=== PATIENT | male | born 1970 | race Caucasian/White ===

== ENCOUNTER → 2020-07-18 | Outpatient (CLI) | payer OTHER | END | disposition home or self-care (01) | LOC: CVU 07:14 | PROVIDERS: ATTEND Internal Medicine Cardiovascular Disease | DX: I25.89 Other forms of chronic ischemic heart disease (principal); E11.9 Type 2 diabetes mellitus without complications; I10 Essential (primary) hypertension; R94.31 Abnormal electrocardiogram [ECG] [EKG] | CPT/HCPCS: 78452; 93017; 93306; 93356; A9502 ==

== ENCOUNTER 2020-08-02 06:40 | Day surgery (SDC) | payer OTHER ==
[~2020-08-02] VITALS: Ht 185.4 cm; Wt 125.0 kg
[2020-08-02] MEDS ORDERED: SODIUM CHLORIDE 0.9% 1,000 ML IV SCH (07:00)
[2020-08-02] MEDS ORDERED: ASPI81TA45 PO (07:18)
[2020-08-02] MEDS ORDERED: SILD25TA PO (07:18)
[2020-08-02] MEDS ORDERED: METF500T17 PO (07:18)
[2020-08-02] MEDS ORDERED: CETI-158 PO (07:18)
[2020-08-02] MEDS ORDERED: ESCI10TA97 PO (07:18)
[2020-08-02] MEDS ORDERED: ROSU10TA2 PO (07:18)
[2020-08-02] MEDS ORDERED: ACEB200C13 PO (07:18)
[2020-08-02] MEDS ORDERED: MULT1TAB57 PO (07:18)
[2020-08-02] MEDS ORDERED: TAMS-11 PO (07:18)
[2020-08-02] MEDS ORDERED: BUPR150T7 PO (07:18)
[2020-08-02] MEDS ORDERED: CHOL10003 PO (07:18)
[2020-08-02] MEDS ORDERED: MAGN400T36 PO (07:18)
[2020-08-02] MEDS ORDERED: DULA1.5P INJ (07:18)
[2020-08-02] MEDS ORDERED: LEVO5TAB29 PO (07:18)
[2020-08-02] MEDS ORDERED: EMPA25TA PO (07:18)
[2020-08-02] MEDS ORDERED: CLOM50TA17 PO (07:18)
[2020-08-02 07:21] VITALS: BP 124/78
[2020-08-02 07:25] LABS: BASOPHILS % (AUTO) 1 % (0-1); EOSINOPHILS % (AUTO) 1 % (1-7); LYMPHOCYTES % (AUTO) 30 % (22-44); MEAN CORPUSCULAR HEMOGLOBIN 26.2 pg (27.5-34.5); MEAN CORPUSCULAR HGB CONC 32.4 g/dL (33.2-36.2); MONOCYTES % (AUTO) 7 % (2-9); NEUTROPHILS % (AUTO) 62 % (42-75); PLATELET COUNT 148 x10^3/uL (130-400); RED BLOOD COUNT 5.48 x10^6/uL (4.38-5.82); RED CELL DISTRIBUTION WIDTH 16.5 % (9.4-14.8)
[2020-08-02 07:29] LABS: MD NO
[2020-08-02 07:39] LABS: ALBUMIN 4.1 g/dL (3.4-5.0); ANION GAP 7 mmol/L (5-15); CALCIUM 9.6 mg/dL (8.5-10.1); CHLORIDE 111 mmol/L (98-107)
[2020-08-02 07:42] LABS: ALANINE AMINOTRANSFERASE 62 U/L (12-78); ALKALINE PHOSPHATASE 94 U/L (45-117); BILIRUBIN,TOTAL 0.8 mg/dL (0.2-1.0); CHOL/HDL RATIO 3.5; CHOLESTEROL, TOTAL 102 mg/dL (140-239); CREATININE 1.04 mg/dL (0.7-1.3); HDL CHOL % 28 % (26-37); HDL CHOLESTEROL (DIRECT) 29 mg/dL (40-60); LDL CHOLESTEROL,CALCULATED 48 mg/dL (54-169); LDL/HDL RATIO 1.7 (0.5-3.0); TOTAL PROTEIN 7.1 g/dL (6.4-8.2); TRIGLYCERIDES 125 mg/dL (50-200); VLDL CHOLESTEROL 25 mg/dL (0-25)
[2020-08-02 07:53] LABS: INTERNATIONAL NORMALIZED RATIO 1.08 (0.93-1.1); PROTHROMBIN TIME 11.5 Seconds (9.6-11.5)
[2020-08-02] MEDS ORDERED: FENTANYL PF 100 MCG/2ML ONE (09:05)
[2020-08-02] MEDS ORDERED: MIDAZOLAM 1 MG/ML, 5ML ONE (09:05)
[2020-08-02] MEDS ORDERED: LIDOCAINE 2%, 20ML ONE (09:06)
== END 2020-08-02 13:24 | disposition home or self-care (01) ==
LOC: CACL 06:40
PROVIDERS: ATTEND Internal Medicine Cardiovascular Disease
DX: R94.39 Abnormal result of other cardiovascular function study (principal); I25.118 Atherosclerotic heart disease of native coronary artery with other forms of angina pectoris; I10 Essential (primary) hypertension; E11.9 Type 2 diabetes mellitus without complications; E78.5 Hyperlipidemia, unspecified; F41.9 Anxiety disorder, unspecified; F32.9 Major depressive disorder, single episode, unspecified; G47.30 Sleep apnea, unspecified; E66.3 Overweight; Z68.35 Body mass index [BMI] 35.0-35.9, adult; Z79.01 Long term (current) use of anticoagulants; Z79.82 Long term (current) use of aspirin; Z79.84 Long term (current) use of oral hypoglycemic drugs; Z79.899 Other long term (current) drug therapy; Z88.8 Allergy status to other drugs, medicaments and biological substances; Z98.890 Other specified postprocedural states; Z83.3 Family history of diabetes mellitus; Z80.3 Family history of malignant neoplasm of breast
CPT/HCPCS: 36415; 80053; 80061; 83036; 85025; 85610; 85730; 93458; 99156; 99157; C1760; C1769; C1894; J2250; J3010; Q9967